=== PATIENT | female | born 1990 | race Caucasian/White ===

== ENCOUNTER 2016-09-17 21:59 | Emergency (ER) | payer BC ==
[2016-09-17 22:18] VITALS: BP 121/82
[2016-09-17] MEDS ORDERED: DIPHENHYDRAMINE HCL 50 MG CAPSULE PO ONE (23:16)
--- NOTE | 2016-09-17 23:19 | ER Document Report ---
ED Hand/Wrist Injury - General Chief Complaint: Finger Injury Stated Complaint: FINGER INJURY Time seen by provider: 23:16 Mode of Arrival: Ambulatory Information source: Patient - HPI Patient complains to provider of: right fourth finger swelling with ring stuck on finger Injury to: Ring finger Onset: This evening Timing: Worse Quality of pain: Achy, Pressure Severity: Moderate Pain Level: 3 Notes: 26-year-old female presenting to the emergency room with right fourth finger swelling with ring stuck on her finger, patient has a known silver allergy and was wearing a silver ring, states she can usually wear for a short time and take it off without any symptoms, however this evening she did not get the ring off in time, attempted to go to the local fire station and have it removed but they were unable to do so so she came to the emergency room, patient did not take any medication prior to arrival - Related Data Allergies/Adverse Reactions: No Known Allergies Allergy (Unverified 09/17/16 22:16) Past Medical History - General Information source: Patient - Social History Smoking Status: Never Smoker Frequency of alcohol use: None Drug Abuse: None Family History: Reviewed & Not Pertinent Renal/ Medical History: Denies: Hx Peritoneal Dialysis Review of Systems - Review of Systems Constitutional: No symptoms reported EENT: No symptoms reported Cardiovascular: No symptoms reported Respiratory: No symptoms reported Gastrointestinal: No symptoms reported Genitourinary: No symptoms reported Female Genitourinary: No symptoms reported Musculoskeletal: See HPI Skin: No symptoms reported Hematologic/Lymphatic: No symptoms reported Neurological/Psychological: No symptoms reported -: Yes All other systems reviewed and negative Physical Exam - Vital signs Vitals: Temp Pulse Resp BP Pulse Ox 98.1 F 83 18 121/82 99 09/17/16 22:17 09/17/16 22:17 09/17/16 22:17 09/17/16 22:17 09/17/16 22:17 Interpretation: Normal - Notes Notes: - General General appearance: Appears well, Alert In distress: None - HEENT Head: Normocephalic, Atraumatic Eyes: Normal Conjunctiva: Normal Extraocular movements intact: Yes Eyelashes: Normal Pupils: PERRL - Respiratory Respiratory status: No respiratory distress - Cardiovascular Rhythm: Regular - Abdominal Inspection: Normal - Back Back: Normal - Extremities General upper extremity: Right hand, fourth digit, with moderate erythema and swelling, a 1 cm thick ring is in place at the base of the finger which cannot be removed with gentle tugging General lower extremity: Normal inspection - Neurological Neuro grossly intact: Yes Orientation: AAOx4 [place] Coma Scale Eye Opening: Spontaneous [place] Coma Scale Verbal: Oriented [place] Coma Scale Motor: Obeys Commands [place] Coma Scale Total: 15 - Psychological Associated symptoms: Normal affect, Normal mood - Skin Skin Temperature: Warm Skin Moisture: Dry Skin Color: Normal Course - Re-evaluation Re-evalutation: 09/18/16 00:52 Patient's ring was removed from her right fourth finger with her permission using the ring remover, she was provided with a dose of Benadryl and information for follow-up, advised to return if symptoms worsen, patient acknowledges understanding and agreement with this plan - Vital Signs Vital signs: Temp Pulse Resp BP Pulse Ox 98.1 F 83 18 121/82 99 09/17/16 22:17 09/17/16 22:17 09/17/16 22:17 09/17/16 22:17 09/17/16 22:17 Procedures - Additional Procedures ring removal Time performed: 23:00 Additional Procedures: Other - Ring removal Notes: 09/18/16 00:53 Silver ring was removed from the fourth digit on the right hand using the [employer] ring remover without difficulty, the ring was then spread using needle- nose pliers and patient was able to safely removed from her finger Discharge - Discharge Clinical Impression: Swelling of finger Condition: Stable Disposition: HOME, SELF-CARE Instructions: Acute Allergic Reaction ([facility]) Additional Instructions: Avoid allergens. Follow-up with your primary care provider in one to 2 days. Take Benadryl as needed to decrease swelling and allergic reaction. Return to the emergency room immediately if symptoms worsen or any additional concerns.
== END 2016-09-17 23:21 | disposition home or self-care (01) ==
LOC: ER 21:59
DX: S60.454A Superficial foreign body of right ring finger, initial encounter (principal); M79.89 Other specified soft tissue disorders; X58.XXXA Exposure to other specified factors, initial encounter
CPT/HCPCS: 99283